=== PATIENT | male | born 1950 | race Caucasian/White ===

== ENCOUNTER 2018-07-05 08:04 | Inpatient (IN) | payer OTHER ==
[2018-07-05] VITALS (9 sets, daily range): BP systolic 117–149; BP diastolic 57–69
[~2018-07-05] VITALS: Ht 160 cm; Wt 86.9 kg
[2018-07-05] MEDS ORDERED: PANTOPRAZOLE 80 MG in SODIUM CHLORIDE 0.9% 50 ML IVPB ONE (08:29)
[2018-07-05] MEDS ORDERED: SODIUM CHLORIDE FLUSH 10ML SYR IVF ONE ×2 (08:30)
[2018-07-05] MEDS ORDERED: SODIUM CHLORIDE 0.9% 1,000ML IVBOLUS ONE (08:30)
[2018-07-05] MEDS ORDERED: ANTIHYPERTENSIVE (08:45)
[2018-07-05] MEDS ORDERED: STATIN (08:45)
[2018-07-05] MEDS ORDERED: WATER PILL (08:45)
[2018-07-05 08:55] LABS: BASOPHILS # (AUTO) 0.03 x10^3/uL (0-0.1); BASOPHILS % (AUTO) 0 % (0-1); EOSINOPHILS % (AUTO) 0 % (1-7); LYMPHOCYTES # (AUTO) 1.32 x10^3/uL (1-3.4); LYMPHOCYTES % (AUTO) 14 % (22-44); MD NO; MEAN CORPUSCULAR HEMOGLOBIN 32.7 pg (27.5-34.5); MEAN CORPUSCULAR HGB CONC 34.3 g/dL (33.2-36.2); MEAN CORPUSCULAR VOLUME 95.3 fL (81-97); MEAN PLATELET VOLUME 7.4 fL (7.4-10.4); MONOCYTES # (AUTO) 0.41 x10^3/uL (0.2-0.8); MONOCYTES % (AUTO) 4 % (2-9); NEUTROPHILS % (AUTO) 82 % (42-75); PLATELET COUNT 297 x10^3/uL (130-400); RED BLOOD COUNT 2.52 x10^6/uL (4.38-5.82); RED CELL DISTRIBUTION WIDTH 13.7 % (9.4-14.8)
[2018-07-05 09:04] LABS: INTERNATIONAL NORMALIZED RATIO 1.01 (0.93-1.1); PROTHROMBIN TIME 10.4 Seconds (9.6-11.5)
[2018-07-05 09:06] LABS: ALANINE AMINOTRANSFERASE 22 U/L (12-78); ALBUMIN 2.9 g/dL (3.4-5.0); ANION GAP 8 mmol/L (5-15); CALCIUM 7.7 mg/dL (8.5-10.1); CHLORIDE 108 mmol/L (98-107); CREATININE 0.89 mg/dL (0.7-1.3)
[2018-07-05 09:09] LABS: ALKALINE PHOSPHATASE 47 U/L (45-117); BILIRUBIN,TOTAL 0.5 mg/dL (0.2-1.0); CREATINE KINASE, TOTAL 307 U/L (39-308); TOTAL PROTEIN 5.8 g/dL (6.4-8.2)
[2018-07-05 09:53] LABS: MICROSCOPIC NOT IND
[2018-07-05] MEDS ORDERED: PANTOPRAZOLE 80 MG in SODIUM CHLORIDE 0.9% 100 ML IV SCH (10:00)
[2018-07-05] MEDS ORDERED: POTASSIUM CHLORIDE 20 MEQ TAB.ER.PRT PO ONE (10:00)
[2018-07-05 10:09] LABS: CULTURE INDICATED? NO
[2018-07-05] MEDS ORDERED: POTASSIUM CHLORIDE 20 MEQ TAB.ER.PRT ONE (10:27)
[2018-07-05] MEDS ORDERED: ACETAMINOPHEN 325 MG TABLET PO PRN (15:30)
[2018-07-05] MEDS ORDERED: hydrALAzine 20 MG/ML, 1ML IVPush PRN (15:30)
[2018-07-05] MEDS ORDERED: ONDANSETRON 2MG/ML, 2ML IVPush PRN (15:30)
[2018-07-05] MEDS ORDERED: ENALAPRILAT 1.25 MG/ML, 2ML IVPush PRN (15:30)
[2018-07-05] MEDS ORDERED: LABETALOL 5MG/ML, 20ML IVPush PRN (15:30)
[2018-07-05] MEDS ORDERED: ZOLPIDEM 5MG TABLET PO PRN (15:30)
[2018-07-05] MEDS ORDERED: ONDANSETRON ODT 4 MG PO PRN (15:30)
[2018-07-05] MEDS: SODIUM CHLORIDE 0.9% 1,000 ML IV SCH (17:32)
[2018-07-06] VITALS (7 sets, daily range): BP systolic 113–146; BP diastolic 68–76
[2018-07-06] MEDS: SODIUM CHLORIDE 0.9% 1,000 ML IV SCH (05:09)
[2018-07-06 06:04] LABS: BASOPHILS # (AUTO) 0.04 x10^3/uL (0-0.1); BASOPHILS % (AUTO) 1 % (0-1); CHLORIDE 114 mmol/L (98-107); EOSINOPHILS # (AUTO) 0.05 x10^3/uL (0-0.4); EOSINOPHILS % (AUTO) 1 % (1-7); LYMPHOCYTES # (AUTO) 2.04 x10^3/uL (1-3.4); LYMPHOCYTES % (AUTO) 32 % (22-44); MD NO; MEAN CORPUSCULAR HEMOGLOBIN 30.9 pg (27.5-34.5); MEAN CORPUSCULAR HGB CONC 34.5 g/dL (33.2-36.2); MEAN CORPUSCULAR VOLUME 89.4 fL (81-97); MEAN PLATELET VOLUME 7.4 fL (7.4-10.4); MONOCYTES # (AUTO) 0.43 x10^3/uL (0.2-0.8); MONOCYTES % (AUTO) 7 % (2-9); NEUTROPHILS # (AUTO) 3.89 x10^3/uL (1.8-6.8); NEUTROPHILS % (AUTO) 60 % (42-75); PLATELET COUNT 226 x10^3/uL (130-400); RED BLOOD COUNT 2.77 x10^6/uL (4.38-5.82)
[2018-07-06 06:15] LABS: ANION GAP 6 mmol/L (5-15); CALCIUM 7.3 mg/dL (8.5-10.1); CHOL/HDL RATIO 3.2; CHOLESTEROL, TOTAL 94 mg/dL (140-239); HDL CHOL % 31 % (26-37); HDL CHOLESTEROL (DIRECT) 29 mg/dL (40-60); LDL CHOLESTEROL,CALCULATED 29 mg/dL (54-169); TRIGLYCERIDES 178 mg/dL (50-200); VLDL CHOLESTEROL 36 mg/dL (0-25)
[2018-07-06] MEDS ORDERED: MIDAZOLAM 1 MG/ML, 5ML ONE (07:42)
[2018-07-06] MEDS ORDERED: FENTANYL PF 100 MCG/2ML ONE (07:42)
[2018-07-06] MEDS ORDERED: PANTOPRAZOLE 40 MG IV IVPush SCH (09:00)
[2018-07-06] MEDS ORDERED: EPINEPHRINE SYRINGE 0.1 MG/ML, 10ML ONE (09:17)
[2018-07-06] MEDS: PANTOPRAZOLE 80 MG in SODIUM CHLORIDE 0.9% 100 ML IV SCH ×2 (11:01→21:44)
[2018-07-06] MEDS ORDERED: POTASSIUM CHLORIDE 40 MEQ in SODIUM CHLORIDE 0.9% 500 ML IV ONE (17:30)
[2018-07-07 01:09] VITALS: BP 145/70
[2018-07-07] MEDS: SODIUM CHLORIDE 0.9% 1,000 ML IV SCH (05:22)
[2018-07-07 05:33] LABS: BASOPHILS # (AUTO) 0.04 x10^3/uL (0-0.1); BASOPHILS % (AUTO) 1 % (0-1); EOSINOPHILS # (AUTO) 0.13 x10^3/uL (0-0.4); EOSINOPHILS % (AUTO) 2 % (1-7); LYMPHOCYTES # (AUTO) 1.71 x10^3/uL (1-3.4); LYMPHOCYTES % (AUTO) 28 % (22-44); MD NO; MEAN CORPUSCULAR HEMOGLOBIN 30.9 pg (27.5-34.5); MEAN CORPUSCULAR HGB CONC 34.2 g/dL (33.2-36.2); MEAN CORPUSCULAR VOLUME 90.5 fL (81-97); MEAN PLATELET VOLUME 7.4 fL (7.4-10.4); MONOCYTES # (AUTO) 0.38 x10^3/uL (0.2-0.8); MONOCYTES % (AUTO) 6 % (2-9); NEUTROPHILS # (AUTO) 3.95 x10^3/uL (1.8-6.8); NEUTROPHILS % (AUTO) 64 % (42-75); PLATELET COUNT 217 x10^3/uL (130-400); RED BLOOD COUNT 2.78 x10^6/uL (4.38-5.82); RED CELL DISTRIBUTION WIDTH 19.4 % (9.4-14.8)
[2018-07-07 05:50] LABS: ANION GAP 7 mmol/L (5-15); CALCIUM 7.2 mg/dL (8.5-10.1); CHLORIDE 113 mmol/L (98-107); CREATININE 0.66 mg/dL (0.7-1.3)
[2018-07-07 07:29] VITALS: BP 126/69
[2018-07-07] MEDS ORDERED: POTASSIUM CHLORIDE 40 MEQ in SODIUM CHLORIDE 0.9% 500 ML IV ONE (07:30)
[2018-07-07] MEDS: PANTOPRAZOLE 80 MG in SODIUM CHLORIDE 0.9% 100 ML IV SCH ×2 (08:40→20:41)
[2018-07-07] MEDS ORDERED: PROPOFOL 10 MG/ML, 20ML ONE (10:02)
[2018-07-07 12:29] VITALS: BP 118/71
[2018-07-07 20:00] VITALS: BP 148/74
[2018-07-08 02:00] VITALS: BP 147/72
[2018-07-08 05:51] LABS: BASOPHILS # (AUTO) 0.04 x10^3/uL (0-0.1); BASOPHILS % (AUTO) 1 % (0-1); EOSINOPHILS # (AUTO) 0.11 x10^3/uL (0-0.4); EOSINOPHILS % (AUTO) 2 % (1-7); LYMPHOCYTES # (AUTO) 1.64 x10^3/uL (1-3.4); LYMPHOCYTES % (AUTO) 28 % (22-44); MD NO; MEAN CORPUSCULAR HEMOGLOBIN 30.3 pg (27.5-34.5); MEAN CORPUSCULAR HGB CONC 33.5 g/dL (33.2-36.2); MEAN CORPUSCULAR VOLUME 90.4 fL (81-97); MEAN PLATELET VOLUME 7.3 fL (7.4-10.4); MONOCYTES # (AUTO) 0.36 x10^3/uL (0.2-0.8); MONOCYTES % (AUTO) 6 % (2-9); NEUTROPHILS # (AUTO) 3.76 x10^3/uL (1.8-6.8); NEUTROPHILS % (AUTO) 64 % (42-75); PLATELET COUNT 284 x10^3/uL (130-400); RED BLOOD COUNT 3.13 x10^6/uL (4.38-5.82)
[2018-07-08 05:58] LABS: ANION GAP 6 mmol/L (5-15); CALCIUM 7.9 mg/dL (8.5-10.1); CHLORIDE 114 mmol/L (98-107); CREATININE 0.86 mg/dL (0.7-1.3)
[2018-07-08] MEDS: PANTOPRAZOLE 80 MG in SODIUM CHLORIDE 0.9% 100 ML IV SCH ×2 (06:05→17:27)
[2018-07-08] MEDS: SODIUM CHLORIDE 0.9% 1,000 ML IV SCH (06:05)
[2018-07-08 08:06] VITALS: BP 145/75
[2018-07-08 13:53] VITALS: BP 134/74
[2018-07-08 21:50] VITALS: BP 148/75
[2018-07-09 01:24] VITALS: BP 134/77
[2018-07-09] MEDS: PANTOPRAZOLE 80 MG in SODIUM CHLORIDE 0.9% 100 ML IV SCH ×3 (03:04→23:07)
[2018-07-09 05:15] LABS: BASOPHILS # (AUTO) 0.05 x10^3/uL (0-0.1); BASOPHILS % (AUTO) 1 % (0-1); EOSINOPHILS # (AUTO) 0.15 x10^3/uL (0-0.4); EOSINOPHILS % (AUTO) 2 % (1-7); LYMPHOCYTES # (AUTO) 1.51 x10^3/uL (1-3.4); LYMPHOCYTES % (AUTO) 24 % (22-44); MD NO; MEAN CORPUSCULAR HEMOGLOBIN 30.6 pg (27.5-34.5); MEAN CORPUSCULAR HGB CONC 33.9 g/dL (33.2-36.2); MEAN CORPUSCULAR VOLUME 90.2 fL (81-97); MEAN PLATELET VOLUME 7.1 fL (7.4-10.4); MONOCYTES # (AUTO) 0.42 x10^3/uL (0.2-0.8); MONOCYTES % (AUTO) 7 % (2-9); NEUTROPHILS % (AUTO) 66 % (42-75); PLATELET COUNT 290 x10^3/uL (130-400); RED CELL DISTRIBUTION WIDTH 19.3 % (9.4-14.8)
[2018-07-09 05:24] LABS: ANION GAP 6 mmol/L (5-15); CALCIUM 7.5 mg/dL (8.5-10.1); CHLORIDE 114 mmol/L (98-107)
[2018-07-09 05:25] LABS: CREATININE 0.99 mg/dL (0.7-1.3)
[2018-07-09 06:52] VITALS: BP 138/74
[2018-07-09] MEDS ORDERED: FENTANYL PF 100 MCG/2ML ONE (07:49)
[2018-07-09] MEDS ORDERED: PROMETHAZINE 25 MG/ML, 1ML IV PRN (08:00)
[2018-07-09] MEDS ORDERED: ALBUTEROL SULFATE 2.5 MG/3 ML NPPB PRN (08:00)
[2018-07-09] MEDS ORDERED: OXYcodone 5 MG/5 ML ORAL.SOL UDC PO PRN (08:00)
[2018-07-09] MEDS ORDERED: LORazepam 2 MG/ML, 1ML IVPush PRN (08:00)
[2018-07-09] MEDS ORDERED: FENTANYL PF 100 MCG/2ML IV PRN (08:00)
[2018-07-09] MEDS ORDERED: LABETALOL 5MG/ML, 20ML IV PRN (08:00)
[2018-07-09] MEDS ORDERED: HYDROmorphone 1 MG/ML, 1ML IV PRN (08:00)
[2018-07-09] MEDS ORDERED: hydrALAzine 20 MG/ML, 1ML IV PRN (08:00)
[2018-07-09] MEDS ORDERED: MEPERIDINE/PF 25MG/0.5ML IVPush PRN (08:00)
[2018-07-09] MEDS ORDERED: PROPOFOL 10 MG/ML, 20ML ONE (08:14)
[2018-07-09] MEDS ORDERED: CEFAZOLIN 1,000 MG ONE (08:14)
[2018-07-09 12:47] VITALS: BP 148/76
[2018-07-09] MEDS: CLARITHROMYCIN 500 MG TABLET PO SCH (19:46)
[2018-07-09] MEDS: AMOXICILLIN 500 MG CAPSULE PO SCH (19:46)
[2018-07-09 19:57] VITALS: BP 135/70
[2018-07-10 02:41] VITALS: BP 134/76
[2018-07-10 04:49] LABS: BASOPHILS # (AUTO) 0.04 x10^3/uL (0-0.1); BASOPHILS % (AUTO) 1 % (0-1); EOSINOPHILS # (AUTO) 0.15 x10^3/uL (0-0.4); EOSINOPHILS % (AUTO) 3 % (1-7); LYMPHOCYTES # (AUTO) 1.62 x10^3/uL (1-3.4); LYMPHOCYTES % (AUTO) 26 % (22-44); MD NO; MEAN CORPUSCULAR HEMOGLOBIN 30.3 pg (27.5-34.5); MEAN CORPUSCULAR HGB CONC 33.7 g/dL (33.2-36.2); MEAN CORPUSCULAR VOLUME 90.1 fL (81-97); MEAN PLATELET VOLUME 6.9 fL (7.4-10.4); MONOCYTES # (AUTO) 0.42 x10^3/uL (0.2-0.8); MONOCYTES % (AUTO) 7 % (2-9); NEUTROPHILS # (AUTO) 4.07 x10^3/uL (1.8-6.8); NEUTROPHILS % (AUTO) 65 % (42-75); PLATELET COUNT 325 x10^3/uL (130-400); RED BLOOD COUNT 2.88 x10^6/uL (4.38-5.82); RED CELL DISTRIBUTION WIDTH 19.5 % (9.4-14.8)
[2018-07-10 05:00] LABS: ANION GAP 4 mmol/L (5-15); CALCIUM 8.2 mg/dL (8.5-10.1); CHLORIDE 113 mmol/L (98-107)
[2018-07-10 05:01] LABS: CREATININE 0.84 mg/dL (0.7-1.3)
[2018-07-10 07:19] VITALS: BP 144/79
[2018-07-10] MEDS: AMOXICILLIN 500 MG CAPSULE PO SCH ×2 (08:46→21:30)
[2018-07-10] MEDS: CLARITHROMYCIN 500 MG TABLET PO SCH ×2 (08:46→21:30)
[2018-07-10] MEDS: PANTOPRAZOLE 80 MG in SODIUM CHLORIDE 0.9% 100 ML IV SCH (09:37)
[2018-07-10 14:11] VITALS: BP 154/78
[2018-07-10] MEDS: OMEPRAZOLE 20 MG CAPSULE.DR PO SCH (17:05)
[2018-07-10 19:57] VITALS: BP 126/72
[2018-07-11 03:32] VITALS: BP 132/68
[2018-07-11 05:16] LABS: BASOPHILS # (AUTO) 0.04 x10^3/uL (0-0.1); BASOPHILS % (AUTO) 1 % (0-1); EOSINOPHILS # (AUTO) 0.19 x10^3/uL (0-0.4); EOSINOPHILS % (AUTO) 3 % (1-7); LYMPHOCYTES # (AUTO) 1.76 x10^3/uL (1-3.4); LYMPHOCYTES % (AUTO) 29 % (22-44); MD NO; MEAN CORPUSCULAR HEMOGLOBIN 30.7 pg (27.5-34.5); MEAN CORPUSCULAR HGB CONC 34.2 g/dL (33.2-36.2); MEAN CORPUSCULAR VOLUME 89.6 fL (81-97); MEAN PLATELET VOLUME 6.9 fL (7.4-10.4); MONOCYTES # (AUTO) 0.48 x10^3/uL (0.2-0.8); MONOCYTES % (AUTO) 8 % (2-9); NEUTROPHILS # (AUTO) 3.59 x10^3/uL (1.8-6.8); NEUTROPHILS % (AUTO) 59 % (42-75); PLATELET COUNT 337 x10^3/uL (130-400); RED BLOOD COUNT 2.78 x10^6/uL (4.38-5.82); RED CELL DISTRIBUTION WIDTH 18.9 % (9.4-14.8)
[2018-07-11 05:19] LABS: ANION GAP 7 mmol/L (5-15); CALCIUM 8.2 mg/dL (8.5-10.1); CHLORIDE 110 mmol/L (98-107)
[2018-07-11] MEDS: CLARITHROMYCIN 500 MG TABLET PO SCH ×2 (08:00→21:17)
[2018-07-11] MEDS: OMEPRAZOLE 20 MG CAPSULE.DR PO SCH ×2 (08:00→17:00)
[2018-07-11] MEDS: AMOXICILLIN 500 MG CAPSULE PO SCH ×2 (08:00→21:17)
[2018-07-11 08:14] VITALS: BP 129/78
[2018-07-11 12:54] VITALS: BP 124/70
[2018-07-11 19:27] VITALS: BP 127/66
[2018-07-12 01:24] VITALS: BP 133/63
[2018-07-12 05:42] LABS: ANION GAP 4 mmol/L (5-15); CALCIUM 8.4 mg/dL (8.5-10.1); CHLORIDE 111 mmol/L (98-107); CREATININE 0.93 mg/dL (0.7-1.3)
[2018-07-12 05:47] LABS: BASOPHILS # (AUTO) 0.07 x10^3/uL (0-0.1); BASOPHILS % (AUTO) 1 % (0-1); EOSINOPHILS # (AUTO) 0.22 x10^3/uL (0-0.4); EOSINOPHILS % (AUTO) 3 % (1-7); LYMPHOCYTES # (AUTO) 2.22 x10^3/uL (1-3.4); LYMPHOCYTES % (AUTO) 31 % (22-44); MD NO; MEAN CORPUSCULAR HGB CONC 33.9 g/dL (33.2-36.2); MEAN CORPUSCULAR VOLUME 91.2 fL (81-97); MEAN PLATELET VOLUME 6.9 fL (7.4-10.4); MONOCYTES # (AUTO) 0.47 x10^3/uL (0.2-0.8); MONOCYTES % (AUTO) 7 % (2-9); NEUTROPHILS # (AUTO) 4.09 x10^3/uL (1.8-6.8); NEUTROPHILS % (AUTO) 58 % (42-75); PLATELET COUNT 427 x10^3/uL (130-400); RED BLOOD COUNT 3.29 x10^6/uL (4.38-5.82); RED CELL DISTRIBUTION WIDTH 18.8 % (9.4-14.8)
[2018-07-12 07:07] VITALS: BP 127/73
[2018-07-12] MEDS: AMOXICILLIN 500 MG CAPSULE PO SCH ×2 (08:05→20:05)
[2018-07-12] MEDS: OMEPRAZOLE 20 MG CAPSULE.DR PO SCH ×2 (08:06→17:51)
[2018-07-12] MEDS: CLARITHROMYCIN 500 MG TABLET PO SCH ×2 (08:06→20:05)
[2018-07-12 13:49] VITALS: BP 118/70
[2018-07-12 19:43] VITALS: BP 113/68
[2018-07-13 01:40] VITALS: BP 121/73
[2018-07-13 06:01] LABS: BASOPHILS # (AUTO) 0.06 x10^3/uL (0-0.1); BASOPHILS % (AUTO) 1 % (0-1); EOSINOPHILS # (AUTO) 0.21 x10^3/uL (0-0.4); EOSINOPHILS % (AUTO) 3 % (1-7); LYMPHOCYTES # (AUTO) 2.47 x10^3/uL (1-3.4); LYMPHOCYTES % (AUTO) 33 % (22-44); MD NO; MEAN CORPUSCULAR HGB CONC 34.7 g/dL (33.2-36.2); MEAN CORPUSCULAR VOLUME 89.5 fL (81-97); MEAN PLATELET VOLUME 6.5 fL (7.4-10.4); MONOCYTES # (AUTO) 0.53 x10^3/uL (0.2-0.8); MONOCYTES % (AUTO) 7 % (2-9); NEUTROPHILS # (AUTO) 4.16 x10^3/uL (1.8-6.8); NEUTROPHILS % (AUTO) 56 % (42-75); PLATELET COUNT 464 x10^3/uL (130-400); RED BLOOD COUNT 2.92 x10^6/uL (4.38-5.82); RED CELL DISTRIBUTION WIDTH 18.5 % (9.4-14.8)
[2018-07-13 06:14] LABS: ANION GAP 6 mmol/L (5-15); CALCIUM 8.3 mg/dL (8.5-10.1); CHLORIDE 110 mmol/L (98-107)
[2018-07-13 07:27] VITALS: BP 129/74
[2018-07-13] MEDS: AMOXICILLIN 500 MG CAPSULE PO SCH ×2 (07:38→20:40)
[2018-07-13] MEDS: OMEPRAZOLE 20 MG CAPSULE.DR PO SCH ×2 (07:38→17:37)
[2018-07-13] MEDS: CLARITHROMYCIN 500 MG TABLET PO SCH ×2 (07:38→20:40)
[2018-07-13 13:20] VITALS: BP 146/70
[2018-07-13 19:44] VITALS: BP 144/73
[2018-07-14 01:34] VITALS: BP 143/74
[2018-07-14 07:09] LABS: BASOPHILS # (AUTO) 0.03 x10^3/uL (0-0.1); BASOPHILS % (AUTO) 1 % (0-1); EOSINOPHILS # (AUTO) 0.14 x10^3/uL (0-0.4); EOSINOPHILS % (AUTO) 2 % (1-7); LYMPHOCYTES # (AUTO) 2.07 x10^3/uL (1-3.4); LYMPHOCYTES % (AUTO) 30 % (22-44); MD NO; MEAN CORPUSCULAR HEMOGLOBIN 29.7 pg (27.5-34.5); MEAN CORPUSCULAR HGB CONC 33.1 g/dL (33.2-36.2); MEAN CORPUSCULAR VOLUME 89.7 fL (81-97); MEAN PLATELET VOLUME 6.3 fL (7.4-10.4); MONOCYTES % (AUTO) 7 % (2-9); NEUTROPHILS % (AUTO) 60 % (42-75); PLATELET COUNT 513 x10^3/uL (130-400); RED BLOOD COUNT 3.02 x10^6/uL (4.38-5.82); RED CELL DISTRIBUTION WIDTH 18.6 % (9.4-14.8)
[2018-07-14 07:11] VITALS: BP 124/82
[2018-07-14 07:21] LABS: ANION GAP 8 mmol/L (5-15); CALCIUM 8.1 mg/dL (8.5-10.1); CHLORIDE 111 mmol/L (98-107); CREATININE 0.94 mg/dL (0.7-1.3)
[2018-07-14] MEDS: OMEPRAZOLE 20 MG CAPSULE.DR PO SCH ×2 (08:15→16:32)
[2018-07-14] MEDS: AMOXICILLIN 500 MG CAPSULE PO SCH ×2 (08:15→20:55)
[2018-07-14] MEDS: CLARITHROMYCIN 500 MG TABLET PO SCH ×2 (08:16→20:55)
[2018-07-14 13:04] VITALS: BP 143/73
[2018-07-14 20:34] VITALS: BP 144/75
[2018-07-15 02:18] VITALS: BP 134/76
[2018-07-15 08:31] VITALS: BP 129/75
[2018-07-15] MEDS: OMEPRAZOLE 20 MG CAPSULE.DR PO SCH ×2 (08:49→17:12)
[2018-07-15] MEDS: AMOXICILLIN 500 MG CAPSULE PO SCH ×2 (08:49→20:40)
[2018-07-15] MEDS: CLARITHROMYCIN 500 MG TABLET PO SCH ×2 (08:49→20:40)
[2018-07-15 12:19] VITALS: BP 149/81
[2018-07-15 19:50] VITALS: BP 144/76
[2018-07-15] MEDS ORDERED: OMNIPAQUE 350 MG/ML, 100ML BOTTLE ONE (21:15)
[2018-07-16 03:35] VITALS: BP 135/79
[2018-07-16 06:09] LABS: BASOPHILS # (AUTO) 0.07 x10^3/uL (0-0.1); BASOPHILS % (AUTO) 1 % (0-1); EOSINOPHILS # (AUTO) 0.16 x10^3/uL (0-0.4); EOSINOPHILS % (AUTO) 3 % (1-7); LYMPHOCYTES # (AUTO) 1.76 x10^3/uL (1-3.4); LYMPHOCYTES % (AUTO) 32 % (22-44); MD NO; MEAN CORPUSCULAR HEMOGLOBIN 28.9 pg (27.5-34.5); MEAN CORPUSCULAR HGB CONC 32.6 g/dL (33.2-36.2); MEAN CORPUSCULAR VOLUME 88.6 fL (81-97); MEAN PLATELET VOLUME 6.4 fL (7.4-10.4); MONOCYTES # (AUTO) 0.45 x10^3/uL (0.2-0.8); MONOCYTES % (AUTO) 8 % (2-9); NEUTROPHILS # (AUTO) 3.15 x10^3/uL (1.8-6.8); NEUTROPHILS % (AUTO) 56 % (42-75); PLATELET COUNT 506 x10^3/uL (130-400); RED BLOOD COUNT 2.81 x10^6/uL (4.38-5.82)
[2018-07-16 08:02] VITALS: BP 143/82
[2018-07-16] MEDS: CLARITHROMYCIN 500 MG TABLET PO SCH ×2 (09:35→20:53)
[2018-07-16] MEDS: OMEPRAZOLE 20 MG CAPSULE.DR PO SCH ×2 (09:35→18:26)
[2018-07-16] MEDS: AMOXICILLIN 500 MG CAPSULE PO SCH ×2 (09:36→20:53)
[2018-07-16 13:19] VITALS: BP 135/77
[2018-07-16 18:48] VITALS: BP_SYST 150; BP_SYST 160; BP_DIAS 75
[2018-07-17 02:30] VITALS: BP 133/76
[2018-07-17] MEDS: OMEPRAZOLE 20 MG CAPSULE.DR PO SCH ×2 (07:30→17:00)
[2018-07-17 07:58] VITALS: BP 165/83
[2018-07-17] MEDS: CLARITHROMYCIN 500 MG TABLET PO SCH ×2 (09:00→21:42)
[2018-07-17] MEDS: AMOXICILLIN 500 MG CAPSULE PO SCH ×2 (09:00→21:42)
[2018-07-17] MEDS ORDERED: ROCURONIUM 10MG/ML,5ML ONE (10:52)
[2018-07-17] MEDS ORDERED: CEFOTETAN 2 GM ONE (10:52)
[2018-07-17 13:39] VITALS: BP 135/78
[2018-07-17] MEDS ORDERED: BUPIVACAINE/PF-EPI 0.5% 1:200K ONE (14:26)
[2018-07-17] MEDS ORDERED: METHYLENE BLUE 10 MG/ML 10ML ONE (14:26)
[2018-07-17] MEDS ORDERED: INDOCYANINE GREEN 25 MG VIAL ONE (14:26)
[2018-07-17] MEDS ORDERED: LIDOCAINE GEL 2%, 5ML ONE (15:54)
[2018-07-17] MEDS ORDERED: MIDAZOLAM 1 MG/ML, 2ML ONE (15:56)
[2018-07-17] MEDS ORDERED: FENTANYL PF 250 MCG/5ML ONE (15:56)
[2018-07-17] MEDS ORDERED: BUPIVACAINE/PF-EPI 0.5% 1:200K INFIL ONE (16:48)
[2018-07-17] MEDS ORDERED: hydrALAzine 20 MG/ML, 1ML IV PRN (17:00)
[2018-07-17] MEDS ORDERED: SCOPOLAMINE PATCH, 1.5MG PATCH.TD72 TD PRN (17:00)
[2018-07-17] MEDS ORDERED: PROMETHAZINE 25 MG/ML, 1ML IV PRN (17:00)
[2018-07-17] MEDS ORDERED: MEPERIDINE/PF 25MG/0.5ML IVPush PRN (17:00)
[2018-07-17] MEDS ORDERED: MIDAZOLAM 1 MG/ML, 2ML IV PRN (17:00)
[2018-07-17] MEDS ORDERED: OXYcodone 5 MG/5 ML ORAL.SOL UDC PO PRN (17:00)
[2018-07-17] MEDS ORDERED: EPHEDRINE 50 MG/ML, 1ML IM PRN (17:00)
[2018-07-17] MEDS ORDERED: ONDANSETRON 2MG/ML, 2ML IV PRN (17:00)
[2018-07-17] MEDS ORDERED: ALBUTEROL/IPRATROPIUM 2.5MG/0.5MG, 3 ML NPPB PRN (17:00)
[2018-07-17] MEDS ORDERED: SUCCINYLCHOLINE 20 MG/ML, 10ML ONE (17:37)
[2018-07-17] MEDS ORDERED: ONDANSETRON 2MG/ML, 2ML ONE (17:37)
[2018-07-17] MEDS ORDERED: NEOSTIGMINE 1 MG/ML, 10ML ONE (17:37)
[2018-07-17] MEDS ORDERED: PROPOFOL 10 MG/ML, 20ML ONE (17:37)
[2018-07-17] MEDS ORDERED: DEXAMETHASONE 4 MG/ML, 1ML ONE (17:37)
[2018-07-17] MEDS ORDERED: GLYCOPYRROLATE 0.2MG/1ML, 5ML ONE (17:37)
[2018-07-17] MEDS ORDERED: CEFAZOLIN 1,000 MG ONE (17:37)
[2018-07-17] MEDS ORDERED: LABETALOL 5MG/ML, 20ML ONE (17:43)
[2018-07-17] MEDS: LABETALOL 5MG/ML, 20ML IV PRN ×3 (17:46→18:24)
[2018-07-17] MEDS ORDERED: FENTANYL PF 100 MCG/2ML ONE (17:57)
[2018-07-17] MEDS: FENTANYL PF 100 MCG/2ML IV PRN ×2 (18:03→18:17)
[2018-07-17] MEDS ORDERED: HYDROmorphone 2 MG/ML, 1ML ONE (18:28)
[2018-07-17] MEDS: HYDROmorphone 1 MG/ML, 1ML IV PRN ×4 (18:31→18:55)
[2018-07-17 19:54] VITALS: BP 145/76
[2018-07-18] VITALS: BP 147/71
[2018-07-18 04:03] VITALS: BP 138/79
[2018-07-18 04:56] LABS: BASOPHILS % (AUTO) 0 % (0-1); EOSINOPHILS % (AUTO) 0 % (1-7); LYMPHOCYTES # (AUTO) 0.43 x10^3/uL (1-3.4); LYMPHOCYTES % (AUTO) 3 % (22-44); MD NO; MEAN CORPUSCULAR HEMOGLOBIN 29.1 pg (27.5-34.5); MEAN CORPUSCULAR HGB CONC 32.9 g/dL (33.2-36.2); MEAN CORPUSCULAR VOLUME 88.5 fL (81-97); MEAN PLATELET VOLUME 6.6 fL (7.4-10.4); MONOCYTES # (AUTO) 0.29 x10^3/uL (0.2-0.8); MONOCYTES % (AUTO) 2 % (2-9); NEUTROPHILS # (AUTO) 11.86 x10^3/uL (1.8-6.8); NEUTROPHILS % (AUTO) 94 % (42-75); PLATELET COUNT 538 x10^3/uL (130-400); RED BLOOD COUNT 2.97 x10^6/uL (4.38-5.82); RED CELL DISTRIBUTION WIDTH 18.5 % (9.4-14.8)
[2018-07-18 08:30] VITALS: BP 133/67
[2018-07-18] MEDS: AMOXICILLIN 500 MG CAPSULE PO SCH ×2 (08:48→21:57)
[2018-07-18] MEDS: CLARITHROMYCIN 500 MG TABLET PO SCH ×2 (08:49→21:56)
[2018-07-18] MEDS: OMEPRAZOLE 20 MG CAPSULE.DR PO SCH ×2 (08:49→17:12)
[2018-07-18 14:30] VITALS: BP 126/74
[2018-07-18 20:15] VITALS: BP 133/72
[2018-07-19 02:33] VITALS: BP 133/71
[2018-07-19 03:45] LABS: MEAN CORPUSCULAR HEMOGLOBIN 29.8 pg (27.5-34.5); MEAN CORPUSCULAR HGB CONC 33.4 g/dL (33.2-36.2); MEAN CORPUSCULAR VOLUME 89.1 fL (81-97); MEAN PLATELET VOLUME 6.6 fL (7.4-10.4); PLATELET COUNT 456 x10^3/uL (130-400); RED BLOOD COUNT 2.55 x10^6/uL (4.38-5.82); RED CELL DISTRIBUTION WIDTH 17.8 % (9.4-14.8)
[2018-07-19 03:48] LABS: ALANINE AMINOTRANSFERASE 35 U/L (12-78); ALBUMIN 2.5 g/dL (3.4-5.0); ANION GAP 3 mmol/L (5-15); CALCIUM 7.8 mg/dL (8.5-10.1); CHLORIDE 111 mmol/L (98-107); CREATININE 0.86 mg/dL (0.7-1.3)
[2018-07-19 03:50] LABS: ALKALINE PHOSPHATASE 64 U/L (45-117); BILIRUBIN,TOTAL 0.2 mg/dL (0.2-1.0); TOTAL PROTEIN 5.8 g/dL (6.4-8.2)
[2018-07-19 04:40] LABS: BASOPHILS # (AUTO) 0.04 x10^3/uL (0-0.1); BASOPHILS % (AUTO) 0 % (0-1); EOSINOPHILS % (AUTO) 0 % (1-7); LYMPHOCYTES # (AUTO) 0.85 x10^3/uL (1-3.4); LYMPHOCYTES % (AUTO) 6 % (22-44); MD SCAN; MONOCYTES # (AUTO) 0.53 x10^3/uL (0.2-0.8); MONOCYTES % (AUTO) 4 % (2-9); NEUTROPHILS # (AUTO) 13.02 x10^3/uL (1.8-6.8); NEUTROPHILS % (AUTO) 90 % (42-75)
[2018-07-19] MEDS: OMEPRAZOLE 20 MG CAPSULE.DR PO SCH ×2 (07:47→17:17)
[2018-07-19] MEDS: CLARITHROMYCIN 500 MG TABLET PO SCH ×2 (07:47→19:47)
[2018-07-19] MEDS: AMOXICILLIN 500 MG CAPSULE PO SCH ×2 (07:47→19:47)
[2018-07-19 09:55] VITALS: BP 148/75
[2018-07-19 13:54] VITALS: BP 150/81
[2018-07-19 20:27] VITALS: BP 164/73
[2018-07-20 01:46] VITALS: BP 156/77
[2018-07-20 05:24] LABS: MEAN CORPUSCULAR HEMOGLOBIN 29.1 pg (27.5-34.5); MEAN CORPUSCULAR HGB CONC 33.3 g/dL (33.2-36.2); MEAN CORPUSCULAR VOLUME 87.5 fL (81-97); MEAN PLATELET VOLUME 6.6 fL (7.4-10.4); PLATELET COUNT 439 x10^3/uL (130-400); RED BLOOD COUNT 2.56 x10^6/uL (4.38-5.82)
[2018-07-20 05:31] LABS: ALBUMIN 2.6 g/dL (3.4-5.0); ANION GAP 5 mmol/L (5-15); CALCIUM 7.7 mg/dL (8.5-10.1); CHLORIDE 109 mmol/L (98-107)
[2018-07-20 05:36] LABS: ALANINE AMINOTRANSFERASE 30 U/L (12-78); ALKALINE PHOSPHATASE 72 U/L (45-117); BILIRUBIN,TOTAL 0.3 mg/dL (0.2-1.0); CREATININE 0.84 mg/dL (0.7-1.3); TOTAL PROTEIN 5.9 g/dL (6.4-8.2)
[2018-07-20 06:11] LABS: BASOPHILS # (AUTO) 0.01 x10^3/uL (0-0.1); BASOPHILS % (AUTO) 0 % (0-1); EOSINOPHILS # (AUTO) 0.02 x10^3/uL (0-0.4); EOSINOPHILS % (AUTO) 0 % (1-7); LYMPHOCYTES # (AUTO) 1.41 x10^3/uL (1-3.4); LYMPHOCYTES % (AUTO) 14 % (22-44); MD SCAN; MONOCYTES # (AUTO) 0.63 x10^3/uL (0.2-0.8); MONOCYTES % (AUTO) 6 % (2-9); NEUTROPHILS # (AUTO) 8.39 x10^3/uL (1.8-6.8); NEUTROPHILS % (AUTO) 80 % (42-75)
[2018-07-20 08:00] VITALS: BP 154/78
[2018-07-20] MEDS: AMOXICILLIN 500 MG CAPSULE PO SCH ×2 (09:05→19:38)
[2018-07-20] MEDS: OMEPRAZOLE 20 MG CAPSULE.DR PO SCH ×2 (09:05→17:07)
[2018-07-20] MEDS: CLARITHROMYCIN 500 MG TABLET PO SCH ×2 (09:05→19:38)
[2018-07-20 15:02] VITALS: BP 150/73
[2018-07-20 19:06] VITALS: BP 148/72
[2018-07-21 02:46] VITALS: BP 138/77
[2018-07-21 05:12] LABS: BASOPHILS # (AUTO) 0.07 x10^3/uL (0-0.1); BASOPHILS % (AUTO) 1 % (0-1); EOSINOPHILS # (AUTO) 0.18 x10^3/uL (0-0.4); EOSINOPHILS % (AUTO) 2 % (1-7); LYMPHOCYTES # (AUTO) 1.79 x10^3/uL (1-3.4); LYMPHOCYTES % (AUTO) 22 % (22-44); MD NO; MEAN CORPUSCULAR HEMOGLOBIN 28.9 pg (27.5-34.5); MEAN CORPUSCULAR HGB CONC 33.7 g/dL (33.2-36.2); MEAN PLATELET VOLUME 6.4 fL (7.4-10.4); MONOCYTES # (AUTO) 0.52 x10^3/uL (0.2-0.8); MONOCYTES % (AUTO) 6 % (2-9); NEUTROPHILS % (AUTO) 69 % (42-75); PLATELET COUNT 539 x10^3/uL (130-400); RED BLOOD COUNT 2.87 x10^6/uL (4.38-5.82); RED CELL DISTRIBUTION WIDTH 18.8 % (9.4-14.8)
[2018-07-21 05:15] LABS: CHLORIDE 109 mmol/L (98-107)
[2018-07-21 05:26] LABS: ANION GAP 6 mmol/L (5-15); CALCIUM 8.3 mg/dL (8.5-10.1); CREATININE 0.91 mg/dL (0.7-1.3)
[2018-07-21] MEDS: AMOXICILLIN 500 MG CAPSULE PO SCH ×2 (08:15→19:39)
[2018-07-21] MEDS: OMEPRAZOLE 20 MG CAPSULE.DR PO SCH ×2 (08:15→17:34)
[2018-07-21] MEDS: CLARITHROMYCIN 500 MG TABLET PO SCH ×2 (08:15→19:39)
[2018-07-21 10:07] VITALS: BP 151/71
[2018-07-21 15:27] VITALS: BP 150/75
[2018-07-21 20:25] VITALS: BP 156/74
[2018-07-22 01:25] VITALS: BP 135/80
[2018-07-22 04:52] LABS: ALANINE AMINOTRANSFERASE 26 U/L (12-78); ALBUMIN 2.7 g/dL (3.4-5.0); ANION GAP 5 mmol/L (5-15); CALCIUM 8.6 mg/dL (8.5-10.1); CHLORIDE 111 mmol/L (98-107); CREATININE 0.95 mg/dL (0.7-1.3)
[2018-07-22 04:53] LABS: BASOPHILS # (AUTO) 0.04 x10^3/uL (0-0.1); BASOPHILS % (AUTO) 1 % (0-1); EOSINOPHILS # (AUTO) 0.23 x10^3/uL (0-0.4); EOSINOPHILS % (AUTO) 3 % (1-7); LYMPHOCYTES # (AUTO) 2.17 x10^3/uL (1-3.4); LYMPHOCYTES % (AUTO) 28 % (22-44); MD NO; MEAN CORPUSCULAR HEMOGLOBIN 28.8 pg (27.5-34.5); MEAN CORPUSCULAR HGB CONC 33.5 g/dL (33.2-36.2); MEAN CORPUSCULAR VOLUME 85.7 fL (81-97); MEAN PLATELET VOLUME 6.4 fL (7.4-10.4); MONOCYTES % (AUTO) 8 % (2-9); NEUTROPHILS # (AUTO) 4.69 x10^3/uL (1.8-6.8); NEUTROPHILS % (AUTO) 61 % (42-75); PLATELET COUNT 527 x10^3/uL (130-400); RED BLOOD COUNT 2.98 x10^6/uL (4.38-5.82); RED CELL DISTRIBUTION WIDTH 18.9 % (9.4-14.8)
[2018-07-22 04:55] LABS: ALKALINE PHOSPHATASE 86 U/L (45-117); BILIRUBIN,TOTAL 0.3 mg/dL (0.2-1.0); TOTAL PROTEIN 6.4 g/dL (6.4-8.2)
[2018-07-22 06:58] VITALS: BP 150/80
[2018-07-22] MEDS: CLARITHROMYCIN 500 MG TABLET PO SCH ×2 (08:52→20:40)
[2018-07-22] MEDS: AMOXICILLIN 500 MG CAPSULE PO SCH ×2 (08:52→20:39)
[2018-07-22] MEDS: OMEPRAZOLE 20 MG CAPSULE.DR PO SCH ×2 (08:52→18:14)
[2018-07-22 14:16] VITALS: BP 155/80
[2018-07-22] MEDS ORDERED: FERR-51 PO (15:06)
[2018-07-22] MEDS ORDERED: OMEP-110 PO (15:06)
[2018-07-22] MEDS ORDERED: AMOX-291 PO (15:06)
[2018-07-22] MEDS ORDERED: CLAR500T PO (15:06)
[2018-07-22 20:20] VITALS: BP 151/81
[2018-07-22] MEDS: FERROUS SULFATE 325 MG TABLET PO SCH (20:39)
[2018-07-23 03:19] VITALS: BP 133/77
[2018-07-23] MEDS: AMOXICILLIN 500 MG CAPSULE PO SCH (07:38)
[2018-07-23] MEDS: CLARITHROMYCIN 500 MG TABLET PO SCH (07:38)
[2018-07-23] MEDS: OMEPRAZOLE 20 MG CAPSULE.DR PO SCH (07:38)
[2018-07-23] MEDS: FERROUS SULFATE 325 MG TABLET PO SCH (07:38)
[2018-07-23 07:58] VITALS: BP 154/82
== END 2018-07-23 09:40 | disposition home or self-care (01) | DRG 542 ==
LOC: ED 08:59 → EDIP 10:25 → 4WST 11:43 → 3NE 07-15 15:07 → 3NW 07-17 16:35 → DCLOUNGE 07-23 09:19
PROVIDERS: ADMIT Internal Medicine; ATTEND Hospitalist
PROC: 30233N1 Transfusion of Nonautologous Red Blood Cells into Peripheral Vein, Percutaneous Approach (ICD-10-PCS; principal; 2018-07-05)
PROC: 3E0G8GC Introduction of Other Therapeutic Substance into Upper GI, Via Natural or Artificial Opening Endoscopic (ICD-10-PCS; 2018-07-06)
PROC: 0D568ZZ Destruction of Stomach, Via Natural or Artificial Opening Endoscopic (ICD-10-PCS; 2018-07-06)
PROC: 0W3P8ZZ Control Bleeding in Gastrointestinal Tract, Via Natural or Artificial Opening Endoscopic (ICD-10-PCS; 2018-07-06)
PROC: 0DD Gastrointestinal System, Extraction (ICD-10-PCS; 2018-07-09)
PROC: 0DB64ZZ Excision of Stomach, Percutaneous Endoscopic Approach (ICD-10-PCS; 2018-07-17 15:00)
DX: C49.A2 Gastrointestinal stromal tumor of stomach (principal); K29.01 Acute gastritis with bleeding; D62 Acute posthemorrhagic anemia; D50.9 Iron deficiency anemia, unspecified; D72.829 Elevated white blood cell count, unspecified; E27.9 Disorder of adrenal gland, unspecified; I10 Essential (primary) hypertension; B96.81 Helicobacter pylori [H. pylori] as the cause of diseases classified elsewhere; E87.6 Hypokalemia; K44.9 Diaphragmatic hernia without obstruction or gangrene; K22.5 Diverticulum of esophagus, acquired; Z90.49 Acquired absence of other specified parts of digestive tract; Z59.0 Homelessness; Z79.82 Long term (current) use of aspirin; Z82.49 Family history of ischemic heart disease and other diseases of the circulatory system; Z91.19 Patient's noncompliance with other medical treatment and regimen
CPT/HCPCS: 36415; 74022; 99285; J3490; S0074; 36430; 70450; 74177; 80048; 80053; 80061; 81003; 82550; 83036; 83735; 84100; 84443; 85014; 85018; 85025; 85610; 85730; 86850; 86900; 86923; 88172; 88173; 88177; 88305; 88309; 88341; 88342; 93005; 96361; 96365; 99152; 99153; G0378; J0690; J1100; J1170; J2250; J2405; J2704; J2710; J3010; J3480; Q0162; Q9967; C9113; G0461; J0330; J7030; J7040; P9016; Q9968

== ENCOUNTER 2021-03-24 19:07 | Emergency (ER) | payer SELFPAY ==
[~2021-03-24] VITALS: Ht 167.6 cm; Wt 84.5 kg
[~2021-03-24 19:07] MED LIST: AMOX-291 PO; ANTIHYPERTENSIVE; CLAR-14 PO; FERR-51 PO; OMEP-110 PO; STATIN; WATER PILL
[2021-03-24] MEDS ORDERED: PLEASE ENTER HEIGHT AND WEIGHT MC SCH (19:30)
[2021-03-24] MEDS ORDERED: ACETAMINOPHEN 500 MG TABLET PO ONE (19:30)
[2021-03-24] MEDS ORDERED: SODIUM CHLORIDE FLUSH 10ML SYR IVF ONE (19:30)
[2021-03-24 19:44] LABS: BASOPHILS % (AUTO) 1 % (0-1); EOSINOPHILS % (AUTO) 0 % (1-7); LYMPHOCYTES % (AUTO) 4 % (22-44); MEAN CORPUSCULAR HEMOGLOBIN 33.2 pg (27.5-34.5); MEAN CORPUSCULAR HGB CONC 34.7 g/dL (33.2-36.2); MEAN PLATELET VOLUME 7.3 fL (7.4-10.4); MONOCYTES % (AUTO) 4 % (2-9); NEUTROPHILS % (AUTO) 91 % (42-75); PLATELET COUNT 242 x10^3/uL (130-400); RED BLOOD COUNT 4.11 x10^6/uL (4.38-5.82)
[2021-03-24 19:46] LABS: MD NO
[2021-03-24 19:53] LABS: ALANINE AMINOTRANSFERASE 33 U/L (12-78); ALBUMIN 3.6 g/dL (3.4-5.0); ANION GAP 8 mmol/L (5-15); CHLORIDE 107 mmol/L (98-107)
[2021-03-24 19:58] LABS: ALKALINE PHOSPHATASE 90 U/L (45-117); BILIRUBIN,TOTAL 0.8 mg/dL (0.2-1.0); TOTAL PROTEIN 6.9 g/dL (6.4-8.2); TROPONIN I < 0.015 ng/mL (0.000-0.045)
[2021-03-24] MEDS ORDERED: ACETAMINOPHEN 500 MG TABLET ONE (20:02)
[2021-03-24 20:42] VITALS: BP 146/69
[2021-03-24 21:28] LABS: MICROSCOPIC AUTO
[2021-03-24] MEDS ORDERED: POTASSIUM CHLORIDE 10% 40 MEQ/30 ML UDC PO ONE (22:00)
[2021-03-24] MEDS ORDERED: CEFTRIAXONE 2 GM in DEXTROSE 5% 50 ML IVPB ONE (22:00)
== END 2021-03-24 22:49 | disposition home or self-care (01) ==
LOC: ED 22:00
DX: N30.00 Acute cystitis without hematuria (principal); R50.9 Fever, unspecified; R00.0 Tachycardia, unspecified; R06.2 Wheezing; R07.9 Chest pain, unspecified
CPT/HCPCS: 36415; 71045; 80053; 81001; 83605; 83880; 84145; 84484; 85025; 87040; 87077; 87086; 93005; 96365; 99285; J0696